=== PATIENT | male | born 1960 | race Caucasian/White ===

== ENCOUNTER 2016-05-11 17:51 | Inpatient (IN) | payer MEDICAID ==
[~2016-05-11] VITALS: Ht 190.5 cm; Wt 129.6 kg
[~2016-05-11 17:51] MED LIST: ASPIRIN EC81 MG PO; AUGMENTIN875 MG PO; NITROSTAT0.4 MG SL
--- NOTE | 2016-05-12 08:17 | HP ---
ADMIT: 05/11/2016 RM/LOC: [address] [facility] MR#: [id number] [facility]#: [id number] [address] [facility] [address] [place] [id number] DARYL MERCEDES [address] [place] [address] History and Physical SEX: M AGE: 56 : 1960 DATE OF SERVICE: CHIEF COMPLAINT: Shortness of breath. HISTORY OF PRESENT ILLNESS: This is a 56-year-old gentleman, history of hep C, drug use, and alcohol use. Also, history of colon cancer, status post resection. He presented to outside Urgent Care with shortness of breath. D- dimer was elevated, so he was sent here. CTA of his chest was negative for PE. However, he did have portal hypertension and cirrhosis noted. He was noted to have an elevated temperature. He had workup ensued. Urinalysis showed urinary tract infection. He maintained his fever, got up to 103. His blood pressures dropped. He was treated with fluid boluses in the emergency room. Currently, blood pressure is much better. He feels a little bit better. However, he is very tired. He reports he has just been ill and not feeling well. He denies any other symptoms other than just feeling bad overall. He falls asleep during some of my conversation, so really much more history cannot be obtained. Other past medical history is taken from his , Sarina, and from the electronic record. PAST MEDICAL HISTORY: Colon cancer, status post resection about 17 years ago, tobacco abuse, hep C, chronic back pain. PAST SURGICAL HISTORY: Includes colon resection and back surgery. ALLERGIES: LEVAQUIN. SOCIAL HISTORY: He has been heavy smoker in the past, currently about half a pack a day. He does have amphetamine and marijuana use occasionally. FAMILY HISTORY: Father had bypass in his 60s. Strong family history of colon cancer on the paternal side of his family. REVIEW OF SYSTEMS: Other complete review of systems obtained and negative except as above. PHYSICAL EXAMINATION: VITAL SIGNS: Pulse 79, respirations 16, ox saturation 97% on room air, blood pressure 130/80. GENERAL: This is a sweaty appearing 56-year-old gentleman, appears older than his stated age. He is in no apparent distress; however, he is sleepy. HEENT: Pupils equal, round, and reactive to light and accommodation. His extraocular muscles are intact. Throat is clear. NECK: Supple. Teeth are in bad shape. Trachea midline. HEART: Regular rate and rhythm. LUNGS: Diminished, but clear bilaterally. ABDOMEN: Protuberant, soft, without any elicitation of tenderness. EXTREMITIES: Lower extremities have trace edema to lower extremities bilaterally. He can move all extremities equally bilaterally. NEUROLOGIC: Again, he is somnolent, cannot answer questions. Does not follow instructions to do cranial nerve testing. ADMIT: 05/11/2016 RM/LOC: [address] [facility] MR#: [id number] [address] [place] [id number] DARYL MERCEDES [address] [place] [address] History and Physical SEX: M AGE: 56 : 1960 LABORATORY AND X-RAY DATA: Urinalysis was hazy, 3+ leukocyte esterase, 161 white cells. Influenza negative. CTA as above. CBC with a white count of 4.5, hemoglobin 11.3, and platelets 37. INR is 1.60, lactic acid of 1.6. CMP; potassium 3.6, creatinine 0.9, bilirubin 2.0, AST is 57. Troponin and CK are normal. ASSESSMENT: 1. Urinary tract infection with sepsis. 2. Hypotension. 3. Portal hypertension and liver cirrhosis. 4. Drug abuse. 5. History of alcohol abuse. PLAN: He is admitted. We will give him IV antibiotics. He has already got a dose of Rocephin. Continue him on IV fluid for now and watch his mental status closely. Aly Keane MD/ mauro JOB #: [id number] CC: Aly Keane, Attending Physician Aly Keane, Family Physician
[2016-05-14] MEDS ORDERED: SPIRONOLACT50 MG PO (19:19)
[2016-05-14] MEDS ORDERED: NICODERM CQ1 EAC2 TP (19:20)
[2016-05-14] MEDS ORDERED: LASIX DPS40 MG PO (19:20)
[2016-05-14] MEDS ORDERED: OMNICEF DPS300 MG PO (19:20)
--- NOTE | 2016-05-17 06:42 | DS ---
ADMIT: 05/11/2016 RM/LOC: [address] [facility] MR#: [id number] ACC#: [id number] [address] [id number] DARYL MERCEDES [address] [place] [address] General Discharge Summary SEX: M AGE: 56 : 1960 ADMISSION DATE: 05/11/2016 DISCHARGE DATE: 05/13/2016 FINAL DIAGNOSES: 1. Urinary tract infection with sepsis. 2. Hypotension. 3. Liver cirrhosis. 4. Hepatitis C. 5. History of alcohol abuse. 6. History of amphetamine and marijuana abuse. 7. Low cortisol with normal ACTH stim test. REASON FOR ADMISSION: This is a 56-year-old gentleman presented with not feeling well, found to have fever and low blood pressures in the emergency room. He was given IV fluid boluses and this corrected his blood pressure. He was also found a UTI in place and given Rocephin. He had CT scan of his chest, which ultimately showed portal hypertension with cirrhosis of the liver. HOSPITAL COURSE: He was admitted, continued on some IV fluids. He had a nicotine patch placed and continued on IV antibiotics. He was started on spironolactone for his portal hypertension, and blood pressure was 116/63 with a pulse is 62, so beta-cari was not given. He had ACTH stim test showing cortisol got above 20. By the day of discharge, he is still little short of breath, which he reports is normal. His oxygen saturation is 95% on room air. He was given a dose of IV Lasix and set up to be discharged home. DISCHARGE MEDICATIONS: Include: 1. Spironolactone 50 mg daily. 2. Habitrol nicotine patch 7 mg 1 patch daily. 3. Omnicef 300 mg b.i.d. for 12 days. 4. Lasix 40 mg daily. He will follow up with me in 1 week's time. He should do daily weights and have a BMP and a regular diet. BMP on followup and a regular diet in the meantime. Aly Keane MD/ mauro JOB #: [id number] CC: Aly Keane MD, Attending Physician Aly Keane MD, Family Physician
--- NOTE | 2016-05-22 06:57 | ER ---
ADMIT: 05/11/2016 RM/LOC: [address] [facility] MR#: [id number] [address] [facility] [address] [place] [phone] RAYMONDANAYAMAXIMO DARYL Crystal [address] [place] [address] Emergency Room Report SEX: M AGE: 56 : 1960 DATE: 05/11/2016 HISTORY OF PRESENT ILLNESS: A 56-year-old male, presented to Urgent Care for care due to shortness of breath and fever for 2 days, but he was detoured to the emergency room because his D-dimer was extremely elevated at Urgent Care. He has a dry cough. REVIEW OF SYSTEMS: Otherwise, negative. PAST MEDICAL HISTORY: Hepatitis C, history of colon cancer, laminectomy, colon resection. ALLERGIES: HE IS ALLERGIC TO LEVAQUIN. MEDICATIONS: Takes no medications. SOCIAL HISTORY: He is a smoker. PHYSICAL EXAMINATION: VITAL SIGNS: Blood pressure 120/48, heart rate is 84, respirations 16, temp is 100.2, and O2 sats 99%. GENERAL: He seems to be alert and answers to questions, but is slightly sleepy. NECK: Supple. RESPIRATIONS: No respiratory distress. CVS: Regular in rate and rhythm. Pulses are full and equally. ABDOMEN: Large, obese, no tenderness. SKIN: Ashen color. EXTREMITIES: 1+ bilaterally edema, lower extremities. NEUROLOGIC: Oriented. Mood and affect, he seems anxious. IMAGING: The CT of the chest shows cirrhosis of the liver, which is new to him. Portal hypertension. No PE. The sepsis workup is pending at this time. We have flu negative. Urine shows WBCs 161 with blood 1+, leukocytes 3+. Culture and sensitivity. He has a potassium that is 3.6, inorganic phosphorus is 1.8, total bilirubin 2.0, total protein in the blood 5.4, albumin 2.1 and AST is 57. The cardiac enzymes are completely negative. His lactic acid is 1.6. Blood cultures pending. His INR is 1.60. PTT is 35.9 with a PT of 16.9. His CBC shows a white count that is 4.5, hemoglobin is 11.3, and hematocrit is 32.4. Platelet count is 37. EMERGENCY ROOM COURSE: The patient was started on antibiotics after blood cultures were done. I chose ceftriaxone originally as I thought that I could let this patient go, but his blood pressure started going down after we started the IV fluids, which put him on a different spectrum for severe sepsis. His EKG shows a rate of 86, sinus rhythm. Dr. Keane was contacted ADMIT: 05/11/2016 RM/LOC: [address] [place] [address] MR#: [id number] [address] [place] [id number] DARYL MERCEDES [place] [address] Emergency Room Report SEX: M AGE: 56 : 1960 at 2049. He is coming to see the patient in the emergency room. CLINICAL IMPRESSION: 1. Sepsis secondary to urinary tract infection. 2. Cirrhosis of the liver. 3. Portal hypertension. DISPOSITION: The patient will follow up with Dr. Keane, most likely will be admitted. We are trying to decide at this point when he comes in where he wants to place the patient. He is receiving the sepsis resuscitation protocol because of his hypotension. The patient advised that he will be admitted to the ER, most likely continue antibiotics with Zosyn. BRANDEE Carvajal / Jarad Berry MD / mauro JOB #: [id number] CC: Aly Keane MD, Attending Physician Aly Keane MD, Family Physician
== END 2016-05-13 16:33 | disposition home or self-care (01) | DRG 872 ==
LOC: ER 17:51 → 4PCU 22:00
PROVIDERS: ADMIT Internal Medicine
DX: A41.9 Sepsis, unspecified organism (principal); K76.6 Portal hypertension; K74.60 Unspecified cirrhosis of liver; N39.0 Urinary tract infection, site not specified; F15.90 Other stimulant use, unspecified, uncomplicated; F12.90 Cannabis use, unspecified, uncomplicated; B19.20 Unspecified viral hepatitis C without hepatic coma; F17.210 Nicotine dependence, cigarettes, uncomplicated; Z82.49 Family history of ischemic heart disease and other diseases of the circulatory system; Z85.038 Personal history of other malignant neoplasm of large intestine